=== PATIENT | male | born 1980 | race African-American/Black ===

== ENCOUNTER 2018-06-19 20:14 | Emergency (ER) | payer BC ==
--- NOTE | 2018-06-19 21:16 | EDM.PDOC ---
ED HPI GENERAL MEDICAL PROBLEM - General Chief Complaint: Abdominal Pain Stated Complaint: ANXIETY/BOWEL MOVEMENT NOT FEELING NORMAL Time Seen by Provider: 06/19/18 20:33 Source of Information: Reports: Patient History Limitations: Reports: No Limitations - History of Present Illness INITIAL COMMENTS - FREE TEXT/NARRATIVE: The patient states that he has been feeling generally weak and shaky for the past 3 days. He also reports a burning sensation in his abdomen when sleeping, along with various aches and pains, including shooting right abdominal and right flank pain. At this time, he states that he has right abdominal pressure. He reports that he has had these constellation of symptoms on and off for the past 6 months, approximately. He states that he was seen at a clinic in [place] about 3 months ago, that blood work was done, but that everything was negative. The patient states that he works out 3 or 4 times a week, that he drinks plenty of water and juice, and eats a vegan diet. He also reports that he takes a lot of supplements and herbs. Here in the ED, it is noted that the patient's oxygen saturation is 99% on room air. The patient does not have a PCP. - Related Data Allergies Allergy/AdvReac Type Severity Reaction Status Date / Time No Known Allergies Allergy Verified 06/19/18 20:32 Home Meds: Home Meds . [No Known Home Meds] 06/19/18 [History] Past Medical History Cardiovascular History: Reports: High Cholesterol (untreated) Social & Family History - Tobacco Use Smoking Status *Q: Never Smoker - Alcohol Use Alcohol Use History: Yes Alcohol Use Frequency: Rarely - Recreational Drug Use Recreational Drug Use: No - Living Situation & Occupation Living situation: Reports: Single, Alone Occupation: Employed ([employer]) ED ROS GENERAL - Review of Systems Review Of Systems: ROS reveals no pertinent complaints other than HPI. ED EXAM, GENERAL - Physical Exam Exam: See Below Exam Limited By: No Limitations General Appearance: Alert, WD/WN (Muscular build), No Apparent Distress, Anxious Eye Exam: Bilateral Eye: EOMI, Normal Inspection Ears: Normal External Exam, Hearing Grossly Normal Nose: Normal Inspection, No Blood Throat/Mouth: Normal Inspection, Normal Lips, Normal Voice, No Airway Compromise Head: Atraumatic, Normocephalic Neck: Normal Inspection, Full Range of Motion Respiratory/Chest: No Respiratory Distress, Lungs Clear, Normal Breath Sounds, No Accessory Muscle Use Cardiovascular: Normal Peripheral Pulses, Regular Rate, Rhythm, No Edema, No Gallop, No JVD, No Murmur, No Rub Peripheral Pulses: 4+: Radial (L), Radial (R) GI/Abdominal: Normal Bowel Sounds, Soft, Non-Tender (including the right side), No Organomegaly, No Distention, No Abnormal Bruit, No Mass (Male) Exam: Deferred Rectal (Males) Exam: Deferred Back Exam: Normal Inspection, Full Range of Motion. No: CVA Tenderness (L), CVA Tenderness (R) Extremities: Normal Inspection, Normal Range of Motion, No Pedal Edema, Normal Capillary Refill Neurological: Alert, Oriented, Normal Cognition, No Motor/Sensory Deficits Psychiatric: Anxious Skin Exam: Warm, Dry, Intact, Normal Color, No Rash Course - Vital Signs Last Recorded V/S: Last Vital Signs Temp 37.7 C 06/19/18 20:32 Pulse 65 06/19/18 20:32 Resp 15 06/19/18 20:32 BP 146/90 H 06/19/18 20:32 Pulse Ox 99 06/19/18 20:32 - Re-Assessments/Exams Free Text/Narrative Re-Assessment/Exam: 06/19/18 21:12 The patient reports symptoms of feeling weak, shaky, with a burning, pressure, or shooting sensation in his right abdomen and right flank, on and off for the past 6 months. Prior evaluation in [place] was unremarkable. I note that the patient's oxygen saturation is 99% on room air here in the ED. I suspect that the patient is suffering from anxiety/hyperventilation syndrome. I explained to the patient that there is no medical emergency at this time, and therefore no need for emergency tests, however, I will refer him to Mario Martinez for further evaluation, that may include discussing treatment options for anxiety. The patient is agreeable. Departure - Departure Time of Disposition: 21:15 Disposition: Home, Self-Care 01 Condition: Good Clinical Impression: Hyperventilation syndrome - Discharge Information *PRESCRIPTION DRUG MONITORING PROGRAM REVIEWED*: Not Applicable *COPY OF PRESCRIPTION DRUG MONITORING REPORT IN PATIENT JUAN: Not Applicable Instructions: Hyperventilation Referrals: Mario Martinez PA [Physician [employer]] - Forms: ED Department Discharge Additional Instructions: You were seen in the emergency room for feeling weak, shaky, with a burning, pressure, or shooting sensation in your right abdomen and right flank on and off for the past 6 months. Based on your history and physical examination, you may be suffering from anxiety, causing a condition called hyperventilation syndrome. As no medical emergency is present at this time, you are being referred to the clinic. Follow-up with Mario Martinez at the next available appointment. If any other problems, please do not hesitate to return to the ER.
== END 2018-06-19 21:31 | disposition home or self-care (01) ==
LOC: JD.ED 20:14
DX: F45.8 Other somatoform disorders (principal)
CPT/HCPCS: 99283